=== PATIENT | female | born 1995 | race African-American/Black ===

== ENCOUNTER 2016-11-15 21:42 | Emergency (ER) | payer OTHER ==
[~2016-11-15] VITALS: Ht 172.7 cm; Wt 81.8 kg
[~2016-11-15 21:42] MED LIST: ENDOCET 5-3251 EACH PO; FERROUS SULFAT325 MG PO; IBUPROFEN800 MG PO; MOTRIN800 MG PO; XULANE PATCH1 EACH TD; ZOFRAN4 MG PO
[2016-11-15 22:54] LABS: ADD MIUA? NO; BILIRUBIN NEGATIVE; BLOOD NEGATIVE; COLOR STRAW ((YELLOW)); GLUCOSE (STRIP) NEGATIVE; KETONES NEGATIVE; LEUKOCYTES NEGATIVE; NITRITE NEGATIVE; PROTEIN (STRIP) NEGATIVE; SPECIFIC GRAVITY 1.011 (1.000-1.030); UCUL ADDED? NO; UROBILINOGEN 0.2 MG/DL (0.2-1.0)
[2016-11-15 23:07] LABS: HEMATOCRIT 38.6 % (36.0-46.0); MCH 30.6 PG (29.0-34.0); MCHC 33.7 G/DL (30.0-36.0); MCV 90.8 FL (83-99); MEAN PLAT.VOLUME 9.5 uM^3 (9.5-12.4); PLATELET COUNT 202 K/uL (156-360); RED BLOOD COUNT 4.25 M/uL (3.80-5.20); WHITE BLOOD COUNT 10.2 K/uL (4.1-10.2)
[2016-11-16 00:52] VITALS: BP 117/61
== END 2016-11-16 00:52 | disposition home or self-care (01) ==
LOC: EME 21:42
DX: O20.0 Threatened abortion (principal); Z3A.01 Less than 8 weeks gestation of pregnancy; Z87.891 Personal history of nicotine dependence
CPT/HCPCS: 76801; 81003; 84702; 85027; 99281; 99283

== ENCOUNTER 2016-12-10 21:42 | Emergency (ER) | payer OTHER ==
[~2016-12-10] VITALS: Ht 172.7 cm; Wt 80.1 kg
[2016-12-10 23:13] LABS: HEMATOCRIT 38.4 % (36.0-46.0); MCH 30.4 PG (29.0-34.0); MCHC 33.9 G/DL (30.0-36.0); MCV 89.9 FL (83-99); MEAN PLAT.VOLUME 9.8 uM^3 (9.5-12.4); PLATELET COUNT 190 K/uL (156-360); RBC DIS.WIDTH-CV 12.5 % (11.8-14.6); RBC DIS.WIDTH-SD 41.2 % (39-53); RED BLOOD COUNT 4.27 M/uL (3.80-5.20); WHITE BLOOD COUNT 11.7 K/uL (4.1-10.2)
[2016-12-10 23:26] LABS: CHLORIDE 105 mEq/L (99-109); POTASSIUM 3.7 mEq/L (3.7-5.4); SODIUM 137 mEq/L (136-147)
[2016-12-10 23:27] LABS: GLUCOSE 94 mg/dL (70-99)
[2016-12-10 23:29] LABS: ANION GAP 9 MEQ/L (2-14)
[2016-12-10 23:31] LABS: GFR ESTIMATE (CALCULATED) > 59 mL/min/
[2016-12-10 23:32] LABS: UREA NITROGEN (BUN) 8 mg/dL (9-23)
[2016-12-11 00:03] LABS: QUANTITATIVE HCG 126764.7 MIU/ML
[2016-12-11 00:40] LABS: ADD MIUA? YES; BILIRUBIN NEGATIVE; BLOOD NEGATIVE; COLOR YELLOW ((YELLOW)); GLUCOSE (STRIP) NEGATIVE; KETONES 80; LEUKOCYTES NEGATIVE; NITRITE NEGATIVE; PROTEIN (STRIP) 30; SPECIFIC GRAVITY 1.025 (1.000-1.030)
[2016-12-11 01:12] LABS: BACTERIA RARE /HPF; EPITHELIAL CELLS 1+ /HPF; MUCUS 4+ /LPF; RED BLOOD CELLS 0-5 /HPF (0-5); UCUL ADDED? NO; WHITE BLOOD CELLS 0-5 /HPF (0-5)
[2016-12-11] MEDS ORDERED: DICLEGIS DR 101 EACH PO (01:15)
[2016-12-11 01:25] VITALS: BP 118/60
== END 2016-12-11 01:32 | disposition home or self-care (01) ==
LOC: RME 21:42 → EME 21:42 → RME 12-11 01:32
DX: O26.891 Other specified pregnancy related conditions, first trimester (principal); O21.9 Vomiting of pregnancy, unspecified; Z3A.09 9 weeks gestation of pregnancy; Z87.891 Personal history of nicotine dependence
CPT/HCPCS: 80048; 81003; 84702; 85027; 99281; 99284; J2405; J7030

== ENCOUNTER 2017-01-07 17:23 | Emergency (ER) | payer OTHER ==
[~2017-01-07] VITALS: Ht 172.7 cm; Wt 80.8 kg
[~2017-01-07 17:23] MED LIST changes: +DICLEGIS DR 101 EACH PO
[2017-01-07 18:04] LABS: HEMATOCRIT 36.7 % (36.0-46.0); MCH 31.1 PG (29.0-34.0); MCHC 34.6 G/DL (30.0-36.0); MEAN PLAT.VOLUME 9.6 uM^3 (9.5-12.4); PLATELET COUNT 193 K/uL (156-360); RBC DIS.WIDTH-CV 12.5 % (11.8-14.6); RBC DIS.WIDTH-SD 41.2 % (39-53); RED BLOOD COUNT 4.08 M/uL (3.80-5.20); WHITE BLOOD COUNT 8.8 K/uL (4.1-10.2)
[2017-01-07 18:19] LABS: CHLORIDE 106 mEq/L (99-109); POTASSIUM 3.6 mEq/L (3.7-5.4); SODIUM 139 mEq/L (136-147)
[2017-01-07 18:22] LABS: GLUCOSE 83 mg/dL (70-99)
[2017-01-07 18:23] LABS: ANION GAP 11 MEQ/L (2-14)
[2017-01-07 18:24] LABS: TOTAL BILIRUBIN 0.3 mg/dL (0.0-1.0)
[2017-01-07 18:25] LABS: ALKALINE PHOSPHATASE 57 IU/L (3-129); GFR ESTIMATE (CALCULATED) > 59 mL/min/
[2017-01-07 18:26] LABS: UREA NITROGEN (BUN) 9 mg/dL (9-23)
[2017-01-07 18:59] LABS: QUANTITATIVE HCG 55525.3 MIU/ML
[2017-01-07 20:25] LABS: BILIRUBIN NEGATIVE; BLOOD NEGATIVE; COLOR YELLOW ((YELLOW)); GLUCOSE (STRIP) 50; KETONES NEGATIVE; LEUKOCYTES NEGATIVE; NITRITE NEGATIVE; PROTEIN (STRIP) 30; UROBILINOGEN 0.2 MG/DL (0.2-1.0)
[2017-01-07 20:31] LABS: ADD MIUA? NO; UCUL ADDED? NO
[2017-01-07 21:08] VITALS: BP 121/70
== END 2017-01-07 21:08 | disposition home or self-care (01) ==
LOC: EME 17:23
DX: O20.0 Threatened abortion (principal); Z87.891 Personal history of nicotine dependence
CPT/HCPCS: 76801; 80053; 81003; 84702; 85027; 99281; 99284

== ENCOUNTER 2017-02-15 15:32 | Emergency (ER) | payer OTHER ==
[~2017-02-15] VITALS: Ht 170.2 cm; Wt 81.7 kg
[2017-02-15 17:05] LABS: HEMATOCRIT 36.6 % (36.0-46.0); MCH 31.8 PG (29.0-34.0); MCHC 34.7 G/DL (30.0-36.0); MCV 91.5 FL (83-99); MEAN PLAT.VOLUME 9.7 uM^3 (9.5-12.4); PLATELET COUNT 196 K/uL (156-360); RBC DIS.WIDTH-CV 13.5 % (11.8-14.6); WHITE BLOOD COUNT 9.7 K/uL (4.1-10.2)
[2017-02-15 17:13] LABS: CHLORIDE 105 mEq/L (99-109); SODIUM 136 mEq/L (136-147)
[2017-02-15 17:15] LABS: GLUCOSE 87 mg/dL (70-99)
[2017-02-15 17:17] LABS: ANION GAP 8 MEQ/L (2-14)
[2017-02-15 17:19] LABS: GFR ESTIMATE (CALCULATED) > 59 mL/min/
[2017-02-15 17:20] LABS: UREA NITROGEN (BUN) 5 mg/dL (9-23)
[2017-02-15 17:27] LABS: QUANTITATIVE HCG 7078.3 MIU/ML
[2017-02-15 17:42] LABS: ADD MIUA? YES; BILIRUBIN NEGATIVE; BLOOD NEGATIVE; COLOR YELLOW ((YELLOW)); GLUCOSE (STRIP) NEGATIVE; KETONES NEGATIVE; LEUKOCYTES NEGATIVE; NITRITE NEGATIVE; PROTEIN (STRIP) 30; UROBILINOGEN 0.2 MG/DL (0.2-1.0)
[2017-02-15 18:36] LABS: CASTS NONE SEEN /LPF; EPITHELIAL CELLS 3+ /HPF; MUCUS TRACE /LPF
[2017-02-15 18:37] LABS: BACTERIA 1+ /HPF; RED BLOOD CELLS NONE SEEN /HPF (0-5); UCUL ADDED? NO; WHITE BLOOD CELLS 0-5 /HPF (0-5)
[2017-02-15 19:09] VITALS: BP 127/98
== END 2017-02-15 19:11 | disposition home or self-care (01) ==
LOC: EME 15:32
PROVIDERS: Nurse Practitioner Family
DX: O9A.312 Physical abuse complicating pregnancy, second trimester (principal); R10.9 Unspecified abdominal pain; R51 Headache; Y07.03 Male partner, perpetrator of maltreatment and neglect; Y04.0XXA Assault by unarmed brawl or fight, initial encounter; O21.9 Vomiting of pregnancy, unspecified; Z90.49 Acquired absence of other specified parts of digestive tract; Z87.891 Personal history of nicotine dependence; Z3A.18 18 weeks gestation of pregnancy
CPT/HCPCS: 76805; 80048; 81003; 84702; 85027; 86900; 86901; 99281; 99284

== ENCOUNTER 2017-04-29 14:36 | Outpatient (CLI) | payer OTHER ==
[~2017-04-29] VITALS: Ht 175.3 cm; Wt 86.8 kg
[2017-04-29 17:57] VITALS: BP 115/69
[2017-04-29 19:47] VITALS: BP 110/65
[2017-04-29] MEDS ORDERED: PRENATA CHEWAB1 EACH PO (19:52)
[2017-04-29 21:24] LABS: BASOPHIL (%) 0.2 % (0-1); EOSINOPHIL (%) 2.5 % (0-5); EOSINOPHIL COUNT 0.3 K/uL (0-0.3); HEMATOCRIT 33.1 % (36.0-46.0); HEMOGLOBIN 11.1 G/DL (11.9-15.5); IMMATURE GRANULOCYTE (%) 0.9 % (0.0-0.7); LYMPHOCYTE (%) 21.7 % (15-42); LYMPHOCYTE COUNT 2.7 K/uL (1.0-2.8); MCH 31.8 PG (29.0-34.0); MCHC 33.5 G/DL (30.0-36.0); MCV 94.8 FL (83-99); MONOCYTE (%) 8.8 % (3-12); MONOCYTE COUNT 1.1 K/uL (0-0.8); NEUTROPHIL (%) 65.9 % (45-76); NEUTROPHIL COUNT 8.1 K/uL (1.8-6.4); PLATELET COUNT 198 K/uL (156-360); RBC DIS.WIDTH-CV 13.2 % (11.8-14.6); RED BLOOD COUNT 3.49 M/uL (3.80-5.20); WHITE BLOOD COUNT 12.3 K/uL (4.1-10.2)
== END 2017-04-29 22:20 | disposition home or self-care (01) ==
LOC: LDRP-OP 14:36 → EME 14:36 → EDSTATUS 17:32 → 2WEST 17:33
PROVIDERS: Advanced Practice Midwife
DX: O26.893 Other specified pregnancy related conditions, third trimester (principal); M53.3 Sacrococcygeal disorders, not elsewhere classified; R51 Headache; S40.812A Abrasion of left upper arm, initial encounter; Y04.2XXA Assault by strike against or bumped into by another person, initial encounter; W17.89XA Other fall from one level to another, initial encounter; Z3A.28 28 weeks gestation of pregnancy
CPT/HCPCS: 59025; 76818; 82948; 85025; 99281; 99283; G0378

== ENCOUNTER 2017-07-10 07:20 | Inpatient (IN) | payer OTHER ==
[~2017-07-10] VITALS: Ht 172.7 cm; Wt 91.2 kg
[~2017-07-10 07:20] MED LIST changes: +PRENATA CHEWAB1 EACH PO
[2017-07-10 08:12] VITALS: BP 118/78
[2017-07-10 09:36] LABS: BASOPHIL (%) 0.3 % (0-1); EOSINOPHIL (%) 1.1 % (0-5); EOSINOPHIL COUNT 0.1 K/uL (0-0.3); HEMATOCRIT 32.2 % (36.0-46.0); HEMOGLOBIN 10.7 G/DL (11.9-15.5); IMMATURE GRANULOCYTE (%) 1.2 % (0.0-0.7); LYMPHOCYTE (%) 22.9 % (15-42); LYMPHOCYTE COUNT 2.3 K/uL (1.0-2.8); MCH 31.4 PG (29.0-34.0); MCHC 33.2 G/DL (30.0-36.0); MCV 94.4 FL (83-99); MONOCYTE (%) 9.9 % (3-12); NEUTROPHIL (%) 64.6 % (45-76); NEUTROPHIL COUNT 6.6 K/uL (1.8-6.4); PLATELET COUNT 191 K/uL (156-360); RBC DIS.WIDTH-CV 14.1 % (11.8-14.6); RBC DIS.WIDTH-SD 48.4 % (39-53); RED BLOOD COUNT 3.41 M/uL (3.80-5.20); WHITE BLOOD COUNT 10.2 K/uL (4.1-10.2)
[2017-07-10 10:25] LABS: AMPHETAMINE NEGATIVE (500 ng/mL); BARBITURATES NEGATIVE (200 ng/mL); BENZODIAZEPINES NEGATIVE (150 ng/mL); BUPRENORPHINE NEGATIVE (10 ng/mL); COCAINE NEGATIVE (150 ng/mL); METHADONE NEGATIVE (200 ng/mL); METHAMPHETAMINE NEGATIVE (500 ng/mL); OPIATES (MORPHINE) NEGATIVE (100 ng/mL); OXYCODONE NEGATIVE (100 ng/mL); PHENCYCLIDINE NEGATIVE (25 ng/mL); PROPOXYPHENE NEGATIVE (300 ng/mL); THC CANNABINOIDS NEGATIVE (50 ng/mL); TRICYCLIC ANTIDEPRESSANTS NEGATIVE (300 ng/mL)
[2017-07-10 13:26] VITALS: BP 121/71
[2017-07-10 16:05] VITALS: BP 131/69
[2017-07-11 06:59] LABS: BASOPHIL (%) 0.2 % (0-1); EOSINOPHIL (%) 1.1 % (0-5); EOSINOPHIL COUNT 0.1 K/uL (0-0.3); HEMATOCRIT 30.5 % (36.0-46.0); HEMOGLOBIN 10.1 G/DL (11.9-15.5); IMMATURE GRANULOCYTE (%) 0.7 % (0.0-0.7); LYMPHOCYTE (%) 19.2 % (15-42); LYMPHOCYTE COUNT 1.9 K/uL (1.0-2.8); MCH 31.5 PG (29.0-34.0); MCHC 33.1 G/DL (30.0-36.0); MONOCYTE (%) 9.6 % (3-12); NEUTROPHIL (%) 69.2 % (45-76); PLATELET COUNT 174 K/uL (156-360); RBC DIS.WIDTH-SD 48.6 % (39-53); RED BLOOD COUNT 3.21 M/uL (3.80-5.20); WHITE BLOOD COUNT 10.1 K/uL (4.1-10.2)
[2017-07-11 11:51] VITALS: BP 120/75
[2017-07-11 14:50] VITALS: BP 121/77
[2017-07-12] MEDS ORDERED: ENDOCET 5-3251 EACH PO (17:36)
[2017-07-12] MEDS ORDERED: FERROUS SULFAT325 MG PO (17:36)
[2017-07-12] MEDS ORDERED: IBUPROFEN800 MG PO (17:36)
== END 2017-07-12 20:15 | disposition home or self-care (01) | DRG 765 ==
LOC: 2WEST 07:20 → 2SOUTH 11:09 → 2WEST 07-12 20:15
PROVIDERS: Obstetrics & Gynecology Obstetrics
DX: O34.211 Maternal care for low transverse scar from previous cesarean delivery (principal); O99.02 Anemia complicating childbirth; D62 Acute posthemorrhagic anemia; O99.824 Streptococcus B carrier state complicating childbirth; D50.9 Iron deficiency anemia, unspecified; O99.72 Diseases of the skin and subcutaneous tissue complicating childbirth; L91.0 Hypertrophic scar; Z3A.39 39 weeks gestation of pregnancy; Z37.0 Single live birth; Z87.891 Personal history of nicotine dependence
CPT/HCPCS: 80306 90; 85025; 86850; 86900; 86901; J0690; J1170; J1885; J2250; J2274; J2405; J7120